=== PATIENT | female | born 1990 | race African-American/Black ===

== ENCOUNTER 2020-08-09 15:17 | Outpatient (CLI) | payer OTHER, SELFPAY ==
--- NOTE | ~2020-08-09 | US_ITS ---
EXAMINATION: US OB follow up DATE: 08/09/2020 15:55 INDICATION: Follow-up growth. TECHNIQUE: Real-time transabdominal obstetric ultrasound. FINDINGS: No prior studies for comparison. There is a single living fetus in vertex presentation. The placenta is fundal without placenta previ a. cardiac activity and movement is noted with a heart rate of 159 beats per minute. T he amniotic fluid volume is normal. The following biometric data were obtained: BPD: 41mm corresponds to gestational age 18 weeks 3 days. Head circumference: 149mm corresponds to gestational age 18 weeks 0 days. Abdominal circumference: 135mm corresponds to gestational age 19 weeks 0 days. Femur length: 20mm corresponds to gestational age 18 weeks 4 days. Estimated weight: 253grams +/- 38grams.] IMPRESSION: 1. Single living intrauterine presentation with an estimated gestational age of 18 weeks 4 days by current ultrasound. EDC by current ultrasound is 01/06/2021. 2. Normal placenta. Reviewed, dictated and finalized at location A. IMPRESSION: 1. Single living intrauterine presentation with an estimated gestati onal age of 18 weeks 4 days by current ultrasound. EDC by current ultrasound is 01/06/2021. 2. Normal placenta.
== END 2020-08-09 15:18 | disposition home or self-care (01) ==
PROVIDERS: Visit Provider Obstetrics & Gynecology
DX: Z34.92 Encounter for supervision of normal pregnancy, unspecified, second trimester (principal); Z3A.18 18 weeks gestation of pregnancy
CPT/HCPCS: 76816

== ENCOUNTER 2020-10-14 11:08 | Outpatient (CLI) | payer OTHER, SELFPAY ==
--- NOTE | ~2020-10-14 | US_ITS ---
EXAMINATION: US OB follow up DATE: 10/14/2020 11:53 INDICATION: Routine care TECHNIQUE: Real-time transabdominal obstetric ultrasound. FINDINGS: Ultrasound dated 08/09/2020 There is a single living fetus in vertex presentation. The placenta is anterior without placenta pre via. cardiac activity and movement is noted with a heart rate of 54 beats per minute. Th e amniotic fluid volume is normal. SERGIO measures 13.8 cm The following biometric data were obtained: BPD: 67mm corresponds to gestational age 26 weeks 6 days. Head circumference: 252mm corresponds to gestational age 27 weeks 2 days. Abdominal circumference: 223mm corresponds to gestational age 27 weeks 1 days. Femur length: 54mm corresponds to gestational age 28 weeks 5 days. Estimated weight: 1111grams +/- 167 grams.] IMPRESSION: 1. Single living fetus in presentation with an estimated gestational age of 28 weeks 0 days by init itial ultrasound. Appropriate interval growth. 2. Normal placenta. Reviewed, dictated and finalized at location A. IMPRESSION: 1. Single living fetus in presentation with an estimated gestational age of 2 8 weeks 0 days by inititial ultrasound. Appropriate interval growth. 2. Normal placenta.
== END 2020-10-14 11:09 | disposition home or self-care (01) ==
LOC: ANHIMG 11:12
PROVIDERS: Visit Provider Obstetrics & Gynecology
DX: Z34.82 Encounter for supervision of other normal pregnancy, second trimester (principal); Z3A.28 28 weeks gestation of pregnancy
CPT/HCPCS: 76816

== ENCOUNTER 2020-12-17 04:01 | Observation (INO) | payer OTHER, SELFPAY ==
[2020-12-17 07:48] VITALS: RESP 16; BMI 42.1
--- NOTE | 2020-12-17 07:50 | OBADM ---
Reported to RN that this patient, Leonor Oconnor, admitted to the OB room Labor/Delivery/Recovery 107 for observation to rule out labor. Patient/family oriented to hospital policies and general routines including ID bracelet, bed and alarms, visiting hours, pain management, procedures, bathroom and other care routines, personal items, smoking policy, room service/diet, call light and visiting hours. Patient/Family are encouraged to report perceived risks to care and to ask questions if they do not understand what they are told or what they should do.
--- NOTE | 2020-12-17 08:35 | PM.OBTRLD ---
OB - Triage/Final Diagnosis Visit Information Comments/Additional reasons for admission: I have assessed the risk for this patient, Leonor Oconnor, and determined that she would benefit from observation care. Evaluation Vital signs: Vital Signs - 24 hr 12/17/20 07:48 Respiratory Rate 16 Final Diagnosis (1) False labor: Code(s): O47.9 - False labor, unspecified Status: Acute (2) Term : Code(s): Z34.90 - Encounter for supervision of normal , unspecified, unspecified trimester Status: Acute
== END 2020-12-17 08:20 | disposition home or self-care (01) ==
PROVIDERS: Admitting Provider Obstetrics & Gynecology; Visit Provider Obstetrics & Gynecology
DX: O47.1 False labor at or after 37 completed weeks of gestation (principal); Z3A.37 37 weeks gestation of pregnancy
CPT/HCPCS: G0378; G0379

== ENCOUNTER 2020-12-28 08:30 | Outpatient (RCR) | payer OTHER, SELFPAY ==
--- NOTE | ~2020-12-28 | US_ITS ---
EXAMINATION: US OB follow up w BPP DATE: 12/28/2020 10:22 INDICATION: Estimated weight, amniotic fluid index assessment, -induced hypertension, third trimester TECHNIQUE: Real-time pelvic ultrasound was performed. The interpreting radiologist was not present fo r the study. COMPARISON: None. FINDINGS: There is a single living fetus in vertex presentation. The placenta is anterior. heart rate is 141 beats per minute (bpm). The amniotic fluid index is 13.0 cm which is normal. Biophysical profile performed by the technologist: breathing (30 sec sustained breathing in 30 minutes): 2 out of 2 movement (3 gross body movements in 30 minutes): 2 out of 2 tone (one episode of tctsdia-fwuhutyyq-grwsnak limb movement): 2 out of 2 Amniotic fluid pocket (2 cm): 2 out of 2 Total score: 8 out of 8 The following biometric data were obtained: Biparietal diameter (BPD): 8.4 cm; head circumference (HC): 32.5 cm; abdominal circumference (AC): 34 .5 cm; femur length (FL): 7.5 cm. The femoral length to biparietal diameter ratio is greater than two standard deviations above the mean. These measurements are otherwise concordant. Estimated weight is 3294 g +/- 494 g, which correlates with the 45th percentile when 01/07/2021 is used as estimated date of delivery. As single measurements, these parameters are each equal to the following estimated gestational ages w ith ranges of +/- 2 standard deviations: BPD: 33 weeks 6 days +/- 3 weeks 1 days. HC: 36 weeks 6 days +/- 2 weeks 5 days. AC: 38 weeks 3 days +/- 3 weeks 0 days. FL: 38 weeks 5 days +/- 3 weeks 1 days. estimated gestational age based solely on measurements from this exam is 37 weeks 0 days +/- 2 weeks 4 days. IMPRESSION: 1. Single living fetus in vertex presentation. 2. Biophysical profile 8 out of 8. 3. Normal amniotic fluid index. 4. Estimated weight is 3294 g +/- 494 g, which correlates with the 45th percentile when 01/08/20 21 is used as estimated date of delivery. 5. Femoral length to biparietal diameter ratio greater than two standard deviations above the mean. Reviewed, dictated and finalized at location B. IMPRESSION: 1. Single living fetus in vertex presentation. 2. Biophysical profile 8 out of 8. 3. Normal amniotic fluid index. 4. Estimated weight is 3294 g +/- 494 g, which correlates with the 45th p ercentile when 01/07/2021 is used as estimated date of delivery. 5. Femoral length to biparietal diameter ratio greater than two standard deviat ions above the mean.
[2020-12-28 11:20] VITALS: BP 124/84; PULSE 100
== END 2021-01-04 07:01 | disposition home or self-care (01) ==
LOC: ANHOBOP 08:30
PROVIDERS: Visit Provider Obstetrics & Gynecology
DX: O26.893 Other specified pregnancy related conditions, third trimester (principal); R03.0 Elevated blood-pressure reading, without diagnosis of hypertension; Z3A.38 38 weeks gestation of pregnancy
CPT/HCPCS: 59025; 76816; 76819

== ENCOUNTER 2020-12-31 10:20 | Inpatient (IN) | payer OTHER, SELFPAY ==
[2020-12-31] VITALS (15 sets, daily range): BP systolic 95–142; BP diastolic 44–95; PULSE 72–113; RESP 16; TEMP 36.7–36.8; O2SAT 100
--- OUTSIDE RECORDS SUMMARY | 2020-12-31 10:31 | XMS_ITS | Encounter Summary ---
:1990 Author Care Team Providers Name Role Phone Jack Jeronimo MD Centrifugal Casting Machine Operator [phone] Reason for Visit ob routine visit Assessment and Plan Assessment Note RUIZ JimenezS 1. Routine care ? urinalysis, dipstick 2. Heterozygous methylenetetrahy drofolate reductase mutation B12 given today ? cyanocobalamin (vit B-12) 1,000 mcg/mL injection solution ? folic acid 1 mg tablet 3. Family planning surveillance Pt wants for co ntraception 4. Group B Streptococcus carrier positive 10/26/20 5. Asthma off work ? controlling your asthma: c are instructions ? learning about asthma 6. -induced hypertensio n ? high blood pressure in pre gnancy: care instructions ? protein, total, 24-hour ur ine - IN ADDITION TO OUR OFFICE PLEASE FAX RESULTS TO [facility] AT ? CMP, serum or plasma - IN ADDITION TO OUR OFFICE PLEASE FAX RESULTS TO [facility] AT [phone] ? uric acid, serum or plasma - IN ADDITION TO OUR OFFICE PLEASE FAX RESULTS TO [facility] AT ? CBC - IN ADDITION TO OUR O FFICE PLEASE FAX RESULTS TO [facility] AT [phone] ? US, obstetric, biophysical profile + non-stress test ? US, obstetric, 3rd trimest er Discussion Note: None recorded. Plan of C
--- OUTSIDE RECORDS SUMMARY | 2020-12-31 10:31 | XMS_ITS | Encounter Summary ---
:1990 Author Care Team Providers Name Role Phone Jack Jeronimo MD Director Clinical Operations [phone] Reason for Visit ob routine visit Assessment and Plan Assessment Note RUIZ JimenezS 1. Routine care ? urinalysis, dipstick 2. Heterozygous methylenetetrahy drofolate reductase mutation Given 11/27/2020 3. Group B Streptococcus carrier positive 10/26/20 4. Asthma off work ? controlling your asthma: c are instructions ? learning about asthma Discussion Note: None recorded. Plan of Care Reminders Provider Appointments Ob 15 01/03/2021 Lisa Coughlin 9:30AM ALANNAH Escobar ? Return to on or around Chanel Coughlin Office 02/06/2021 ALANNAH Escobar Lab Urinalysis, 12/20/2020 In-Of fice Order Dipstick Referral None ? ? recorded. Procedures None ? ? recorded. Surgeries None ? ? recorded. Imaging None ? ? recorded. Medications Name Start Date ? ? albuterol sulfate HFA 90 mcg/actuation aerosol
--- OUTSIDE RECORDS SUMMARY | 2020-12-31 10:31 | XMS_ITS | Encounter Summary ---
:1990 Author Care Team Providers Name Role Phone Jack Jeronimo MD Parimutuel Ticket Cashier [phone] Reason for Visit ob routine visit Pt sates she have a yellowish-green disc harge no odor, itching nor irritation. She believe it was from using araujo shaving cream. Assessment and Plan Assessment Note Fani BRAND 1. Routine care ? urinalysis, dipstick 2. Abnormal glucose tolerance te st 1H-162 normal gtt 3hr 3. Group B Streptococcus carrier 4. Heterozygous methylenetetrahy drofolate reductase mutation ? cyanocobalamin (vit B-12) 1,000 mcg/mL injection solution 5. Obesity ? when you are overweight: c are instructions 6. Bacterial vaginosis ? bacterial vaginosis: care instructions ? metronidazole 0.75 % vagin al gel 7. Candidiasis of vagina ? fluconazole 150 mg tablet ? vaginal yeast infection: c are instructions 8. Venereal disease screening ? bacterial vaginosis + vagi nitis panel, vaginal ? HSV (1+2) DNA, qual, PCR, unspecified specimen 9. screening ? culture, vaginal/rectal, s treptococcus group B Discussion Note Discussed control options, wo uld like more information on IUD vs Nexplanon. Did not like being on depo du e to weight gain, but did help bleeding. Concern for yellow/green discharge witho ut odor, took swabs for culture. Minor back pain.
--- OUTSIDE RECORDS SUMMARY | 2020-12-31 10:31 | XMS_ITS | Encounter Summary ---
:1990 Author Care Team Providers Name Role Phone Jack Jeronimo MD Learning Support Services Director [phone] Reason for Visit ob routine visit Assessment and Plan 1. Routine care ? urinalysis, dipstick ? US, obstetric, [address] [place] [address] er 2. Heterozygous methylenetetrahy drofolate reductase mutation 3. Group B Streptococcus carrier positive 10/26/20 4. Asthma off work ? controlling your asthma: c are instructions ? learning about asthma 5. Abnormal glucose tolerance te st 1H-162 normal gtt 3hr Discussion Note: None recorded. Plan of Care Reminders Provider Appointments Ob 15 01/03/2021 Lisa Coughlin 9:30AM ALANNAH Escobar ? Return to on or around [facility]ough[facility] Office 02/06/2021 ALANNAH Escobar Lab Urinalysis, 12/13/2020 In-Of fice Order Dipstick Referral None ? ? recorded. Procedures None ? ? recorded. Surgeries None ? ? recorded. Imaging US, 12/13/[address] [facility] Trimester Medications Name Start Date ? ?
--- OUTSIDE RECORDS SUMMARY | 2020-12-31 10:31 | XMS_ITS ---
:1990 Author Care Team Providers Name Role Phone CAREY HANKS MD Inspector Health Care Facilities [phone] Allergies Code Code System Name Reaction Severity Status Onset NKDA ? Notes: Some allergies listed in Document: #[id number] could not be added to this patient's chart. Please review this document and add these allergies to the patient's chart manually as needed. Medications Name Status Start Date Stop Date ? ? albuterol sulfate HFA 90 mcg/actuation aerosol inhaler Active ? Not available INHALE 2 PUFFS BY MOUTH TWICE A DAY aspirin 81 mg tablet,delayed release Active ? Not available TAKE 2 TABLETS BY MOUTH EVERY DAY azithromycin 250 mg tablet Completed ? 10/05 TAKE 2 TABLETS BY MOUTH TODAY, THEN TAKE 1 TABLET DAILY FOR 4 D AYS Calcium 600 with Vitamin D3 600 mg (1,500 mg)-400 unit capsule A ctive ? Not available Take 1 capsule twice a day by oral route. calcium carbonate-vitamin D3 600 mg (1,500 mg)-800 unit tablet C ompleted ? 08/02/2020 Take 1 tablet twice a day by oral route for 30 days. ceftriaxone 1 gram solution for injection Completed ? 10/09/2017 Take 500 mg by injection route. cetirizine 10 mg tablet Active ? Not avai lable cyanocobalamin (vit B-12) 1,000 mcg/mL injection solution Active ? Not available Inject 1 mL every month by subcutaneous route. Depo-Provera 150 mg/mL intramuscular suspension Completed ? 12/01/2017 Inject 150 mL every 3 months by intramuscular route. ferrous sulfate 325 mg (65 mg iron) tablet Completed ? 12/01/2017 Take 1 tab
--- OUTSIDE RECORDS SUMMARY | 2020-12-31 10:31 | XMS_ITS | Encounter Summary ---
:1990 Author Care Team Providers Name Role Phone Jack Jeronimo MD Project Management Advisor [phone] Reason for Visit ob routine visit Assessment and Plan Assessment Note SAGAR MatiasS 1. Routine care ? urinalysis, dipstick ? US, obstetric, 3rd trimest er ? counting your baby's kicks : care instructions ? kick counts ? CBC - In addition to our o ffice, please fax results to [facility] [phone] ? Boostrix Tdap 2.5 Lf unit- 8 mcg-5 Lf/0.5 mL intramuscular suspension 2. Group B Streptococcus carrier 3. Heterozygous methylenetetrahy drofolate reductase mutation ? cyanocobalamin (vit B-12) 1,000 mcg/mL injection solution 4. Obesity ? when you are overweight: c are instructions 5. Anemia ? anemia: care instructions 6. Gonorrhea ? gonorrhea: care instructio ns 7. screening ? glucose tolerance test, po st-50G, 1-hour - In addition to our office, please fax results to [facility] [phone] Discussion Note: None recorded. Plan of Care Reminders Provider Appointments Ob 15 01/03/2021 Lisa Coughlin 9:30AM ALANNAH Escobar ? Return to on or around [facility]ough[facility] Office 02/06/
--- OUTSIDE RECORDS SUMMARY | 2020-12-31 10:31 | XMS_ITS | Encounter Summary ---
:1990 Author Care Team Providers Name Role Phone Jack Jeronimo MD Wheel Braider [phone] Reason for Visit ob routine visit Assessment and Plan Assessment Note Nubia BRAND 1. Routine care ? weeks 32 to 34 of your pre gnancy: care instructions ? HIV 1+2 AB + HIV 1 p24 Ag, qualitative immunoassay, serum ? RPR (rapid plasma reagin), serum ? CBC ? urinalysis, dipstick 2. Heterozygous methylenetetrahy drofolate reductase mutation 3. Group B Streptococcus carrier 4. Bacterial vaginosis ? bacterial vaginosis: care instructions 5. Hemorrhoids ? hemorrhoids: care instruct ions ? Anusol-HC 2.5 % topical cr eam with perineal applicator ? Linzess 145 mcg capsule Discussion Note: None recorded. Plan of Care Reminders Provider Appointments Ob 15 01/03/2021 Lisa Coughlin 9:30AM ALANNAH Escobar ? Return to on or around [facility]ough[facility] Office 02/06/2021 ALANNAH Escobar Lab HIV 1+2 AB + 11/13/2020 [facility]p HIV 1 P24 Ag, Qualitative Immunoassay, Serum ? RPR (Rapid 11/13/2020 [facility] p Plasma Reagin), Serum
--- OUTSIDE RECORDS SUMMARY | 2020-12-31 10:31 | XMS_ITS | Encounter Summary ---
:1990 Author Care Team Providers Name Role Phone Jack Jeronimo MD Senior Telecommunications Engineer [phone] Reason for Visit ob routine visit Assessment and Plan Assessment Note Dwayne MELCHORS 1. Routine care ? urinalysis, dipstick 2. Heterozygous methylenetetrahy drofolate reductase mutation ? cyanocobalamin (vit B-12) 1,000 mcg/mL injection solution ? folic acid 1 mg tablet 3. Group B Streptococcus carrier 4. Asthma off work ? controlling your asthma: c are instructions ? learning about asthma 5. Obesity ? when you are overweight: c are instructions Discussion Note: None recorded. Plan of Care Reminders Provider Appointments Ob 15 01/03/2021 Lisa Coughlin 9:30AM ALANNAH Escobar ? Return to on or around [facility]ough[facility] Office 02/06/2021 ALANNAH Escobar Lab Urinalysis, 11/27/2020 In-Of fice Order Dipstick Referral None ? ? recorded. Procedures None ? ? recorded. Surgeries None ? ? recorded. Imaging None ? ? recorded. Medications
[2020-12-31] MEDS: AMPICILLIN 2 GM/NS 100 ML 2 GM/100 ML BAG IVPB (10:38)
[2020-12-31] MEDS: LACTATED RINGERS 1,000 ML 125 ML IV CONT (10:38)
[2020-12-31 10:44] LABS: Basophils Percent Auto 0.2 % (0.2-1.2); Eosinophils Absolute Auto 0.1 K/mm3 (0-0.3); Eosinophils Percent Auto 0.5 % (0-4.4); Hematocrit 34.8 % (37.0-47.0); Hemoglobin 10.2 g/dL (12.0-15.0); Immature Granulocyte Absolute 0.05 K/mm3 (0.00-0.031); Immature Granulocyte Percent A 0.5 % (0-0.5); Immature Platelet Fraction Pct 9.9 % (0.9-11.2); Lymphocytes Absolute Auto 1.99 K/mm3 (0.9-3.2); Lymphocytes Percent Auto 19.8 % (18.3-44.2); Mean Corpuscular HGB Conc 29.3 g/dl (32-36); Mean Corpuscular Volume 78.4 fl (80-100); Mean Platelet Volume 11.8 fl (7.4-10.4); Monocytes Absolute Auto 0.8 K/mm3 (0.1-0.6); Monocytes Percent Auto 8.3 % (2.6-8.5); Neutrophils Absolute Auto 7.1 K/mm3 (1.3-6.7); Neutrophils Percent Auto 70.7 % (45.5-73.1); Platelet Count Result 200 k/mm3 (150-375); Red Blood Count 4.44 M/mm3 (4.2-5.4); Red Cell Distribution Width 16.6 % (11.5-14.5); White Blood Count 10.1 K/mm3 (4.5-10.0)
[2020-12-31] MEDS: OXYTOCIN 30 UNITS/NS 500 ML 30 UNITS/500 ML BAG 999 UNITS IV CONT (10:51)
--- NOTE | 2020-12-31 11:10 | PM.IMHP ---
H&P: HPI History of Present Illness Date/Time: 12/31/20 11:05 Leonor is a 30yo @ 39.0wks (MIRNA 01/07/21) who presented as a stat OB in labor; found to be ruptured (clear) on the drive here and 8cm on initial exam. She has had regular care with Dr. Jeronimo. Her is complicated by: - GBS unknown - Asthma on steroid and rescue inhaler - Migraines; sumatriptan PRN - Varicella non-immune - Elevated 1hr GTT; normal 3hr OGTT - Mild anemia - Obesity Chief Complaint: labor Review of Systems Review of Systems: All systems reviewed & are unremarkable except as noted in HPI and below (HPI) Meds Home Medications and Allergies Home Medications Medication Instructions Recorded Confirmed Type PNV cmb#95-ferrous fumarate-FA 1 tablet PO DAILY 12/28/20 12/28/20 History [] aspirin [Baby Aspirin] 81 mg PO DAILY 12/28/20 12/28/20 History Allergies Allergy/AdvReac Type Severity Reaction Status Date / Time No Known Allergies Allergy Verified 12/17/20 07:38 Vital Signs Vital Signs - 24 hr 12/31/20 10:45 12/31/20 10:47 12/31/20 11:01 Pulse Rate 113 H 89 Blood Pressure 138/85 126/95 H 133/73 Exam Const: General: cooperative and in distress (with contractions) Nutritional Appearance: obese Resp: Effort & Inspection: normal respiratory effort Cardio: Rate: regular rate : Other: Cervix: 8cm FHT's; category 2 but reassuring presentation: cephalic Skin: General skin exam: normal color Neuro: General: patient oriented x3 Extrem: General: normal to inspection Psych: Appearance: grossly normal Affect: normal affect H&P: Results Labs Labs: Short CBC 12/31/20 Range/Units 10:35 WBC 10.1 H (4.5-10.0) K/mm3 Hgb 10.2 L (12.0-15.0) g/dL Hct 34.8 L (37.0-47.0) % Plt Count 200 (150-375) k/mm3 Assessment and Plan Assessment and plan (1) Active labor at term: Status: Acute Additional Plan - Admitted to L&D for precipitous delivery
--- NOTE | 2020-12-31 11:10 | WPDHPUPDATE1 ---
History and Physical Update Update Date/Time: 12/31/20 11:10 History and Physical has been reviewed, including an updated exam of the patient. There are NO changes in the patient's condition. Risks, benefits, and alternatives have been discussed and questions answered. Patient agrees to proceed with procedure.
--- NOTE | 2020-12-31 11:16 | PM.OBPRVD ---
OB - Delivery Note Procedure Delivery date: 12/31/20 Intrapartal events: Precipitous Labor < 3 hours Induction method: none Delivery monitor: external FHT and external uterine Route of delivery: Laceration Description: Vaginal - 1st Degree Delivery repair: vicryl Specimen: Yes Quantitative Blood Loss (ml): 200 Anesthesia type: None Disposition: floor Baby Date of : 12/31/20 Time of : 10:47 Weeks of gestation at delivery: 39 Infant gender: Male Weight (pounds): 7 Weight (ounces): 1 presentation: vertex position: Right Occiput Anterior Placenta delivery description: Expressed cord vessel description: 3 Vessels and Delayed Cord Clamping score one minute: 9 score five minutes: 9 Narrative: Leonor presented to Labor and delivery in active labor, found to be 8 cm with ruptured membranes. heart tones were reassuring and within 10 minutes was found to be completely dilated with strong desire to push. She pushed twice and delivered the head over intact perineum. No nuchal cord was palpated. She easily delivered the infant's shoulders and body without complications. The had spontaneous cry and was immediately placed skin to skin. Delayed cord clamping was performed. The umbilical cord was then clamped and cut. A segment of the cord was collected for cord gases. The remaining cord blood was collected for typing. With Pitocin running and gentle downward traction on the umbilical cord, the placenta delivered without complications, verified intact. Fundal massage was performed and minimal bleeding was noted. The patient was examined and was found to have a small vaginal laceration. Pressure was applied but the laceration continued bleeding. The patient was anesthetized using local anesthesia. A figure of 8 using 2-0 Vicryl was placed and the laceration was found to be hemostatic. Fundal massage was once again noted to be firm with minimal bleeding. Sponge, lap, instrument, and needle counts were correct at the end of the procedure. Mom and baby were left bonding in the birthing suite in a stable condition.
[2020-12-31] MEDS: OXYTOCIN 30 UNITS/NS 500 ML 30 UNITS/500 ML BAG 125 UNITS IV CONT (11:29)
[2020-12-31 12:07] LABS: HIV 1/2 Ab P24 Ag Result Negative (Negative)
--- NOTE | 2020-12-31 13:03 | LDADM ---
This patient, Leonor Oconnor, was admitted to Labor/Delivery/Recovery 107 on 12/31/20 at 10:20. Plans for labor, pain management and were discussed with patient. Patient/family oriented to hospital policies and general routines including ID bracelet, bed and alarms, visiting hours, pain management, procedures, bathroom and other care routines, personal items, smoking policy, room service/diet and guest tray routines, security routines, and visiting hours. Patient/Family are encouraged to report perceived risks to care and to ask questions if they do not understand what they are told or what they should do. See OBIX for further documentation.
--- NOTE | 2020-12-31 19:37 | OBPPTRN ---
[id number] Patient transferred to post room #290 via W/C. Support person present. Oriented to unit, room, information board, rooming in, admission packet and security measures. Patient verbalizes understanding.
[2020-12-31] MEDS: ACETAMINOPHEN 325 MG TABLET 650 MG PO (23:32)
[2020-12-31] MEDS: IBUPROFEN 600 MG TABLET PO (23:33)
[2021-01-01 04:30] VITALS: BP 133/90; PULSE 74; RESP 16; TEMP 36.4; O2SAT 100
[2021-01-01 04:54] LABS: Hematocrit 32.9 % (37.0-47.0); Hemoglobin 9.4 g/dL (12.0-15.0)
[2021-01-01] MEDS: ACETAMINOPHEN 325 MG TABLET 650 MG PO (05:03)
[2021-01-01] MEDS: IBUPROFEN 600 MG TABLET PO (05:03)
[2021-01-01 07:30] VITALS: BP 135/87; PULSE 82; RESP 16; TEMP 36.4; O2SAT 100
--- NOTE | 2021-01-01 07:41 | PM.OBDSVD ---
DS: Admitting Diagnosis Discharge Date 01/01/2021 Admitting Diagnosis OB - DS: Summary OB Procedures : None OB Procedures Intrapartum: Spontaneous Vag Delivery OB Procedures: : None Time Spent with Patient Time attestation: Total time spent providing and/or coordinating discharge services: DS: Data Data Completed and Pending Labs on day of discharge: Labs from last 24 hours 01/01/21 12/31/20 12/31/20 04:23 10:35 10:35 WBC RBC Hgb 9.4 L Hct 32.9 L MCV MCH MCHC RDW Plt Count MPV Immature Gran % (Auto) Neut % (Auto) Lymph % (Auto) [place] % (Auto) Eos % (Auto) Baso % (Auto) Lymph # (Auto) [place] # (Auto) Eos # (Auto) Baso # (Auto) Abs Immat Gran (auto) Absolute Neuts (auto) Absolute Nucleated RBC Nucleated RBC % % Immature Plt Fraction RPR HIV 1&2 Ab/P24 Ag 4thGn Negative Blood Type A Positive Antibody Screen Negative 12/31/20 12/31/20 10:35 10:35 WBC 10.1 H RBC 4.44 Hgb 10.2 L Hct 34.8 L MCV 78.4 L MCH 23.0 L MCHC 29.3 L RDW 16.6 H Plt Count 200 MPV 11.8 H Immature Gran % (Auto) 0.5 Neut % (Auto) 70.7 Lymph % (Auto) 19.8 Tal[place]ferro % (Auto) 8.3 Eos % (Auto) 0.5 Baso % (Auto) 0.2 Lymph # (Auto) 1.99 [place]ferro # (Auto) 0.8 H Eos # (Auto) 0.1 Baso # (Auto) 0.0 Abs Immat Gran (auto) 0.05 H Absolute Neuts (auto) 7.1 H Absolute Nucleated RBC 0.0 Nucleated RBC % 0.0 % Immature Plt Fraction 9.9 RPR Pending HIV 1&2 Ab/P24 Ag 4thGn Blood Type Antibody Screen Discharge Plan Discharge Consulting providers: María Antunez Discharging Clinician: Rudy Herrera Patient Disposition: Home, Self-Care Activity: as tolerated Diet: as tolerated Discharge Instructions: Education: Mom and Baby Guide Given to: Mother Follow-Up: Call your delivering provider's office for an appointment to be seen in: 3 weeks Mom and baby should come to the [facility] for the follow-up appointment. Appointment Date/Time: January 05, 2021 at 10:00 am What to expect at your follow-up visit: Physical Assessment Call [phone] if you are unable to keep your appointment time. BREAST CARE: * Wear a snug supportive bra. * For engorgement discomfort: Bottle Feeding: * May apply ice packs EPISIOTOMY/PERINEAL CARE: * Until bleeding stops, use your nikolas bottle after urinating * Change your pad frequently throughout the day * You may take sitz baths several times a day (fill your bathtub with warm water and soak for 20 minutes.) Do NOT bathe in the water * No tub baths until seen by your physician - You may shower ACTIVITY: * Rest as much as possible. * Do not exercise or lift anything heavier than your baby (such as laundry or other children.) * Avoid stairs or driving as much as possible. * Do not put anything into the vagina. No douching, tampons, or sexual activity until seen by physician. NOTIFY PHYSICIAN IF YOU HAVE ANY QUESTIONS OR IF ANY OF THE FOLLOWING SYMPTOMS OCCUR: * If your episiotomy or incision becomes red, swollen, or more painful than what you have experienced in the hospital. * If your vaginal bleeding becomes foul smelling. * If your vaginal bleeding becomes more heavy than a period or if your bleeding changes from pink to bright red. However, you may pass an occasional walnut-sized clot once or twice for the first week . * If you experience a sharp, shooting pain in you calves. * If you discover a hard, reddened area on your breast or if you experience flu-like symptoms. DIET: * Eat regular, well-balanced meals. * Drink plenty of fluids daily. If , drink to thirst. Stand Alone Forms: General Discharge Information Follow-up/Referrals: Jack Jeronimo MD [Physician] - 3 Weeks Discharge Medications: New ibuprofen 600 m
[2021-01-01] MEDS: DOCUSATE SODIUM 100 MG CAPSULE PO ×2 (08:22→17:58)
[2021-01-01] MEDS: POLYSACCHARIDE IRON COMPLEX 150 MG CAPSULE PO ×2 (08:22→17:58)
[2021-01-01 09:29] LABS: Rapid Plasma Reagin Non-Reactive (NonReactive)
[2021-01-01 19:20] VITALS: BP 111/90; PULSE 100; RESP 16; TEMP 36.7
[2021-01-02 08:10] VITALS: BP 138/94; PULSE 80; RESP 16; TEMP 37.4; O2SAT 100
[2021-01-02] MEDS: POLYSACCHARIDE IRON COMPLEX 150 MG CAPSULE PO (08:46)
[2021-01-02] MEDS: DOCUSATE SODIUM 100 MG CAPSULE PO (08:46)
--- NOTE | 2021-01-02 10:39 | PC.NURSE ---
Patient instructed on viewing the discharge video Mother & Baby Care, The First Two Weeks . Patient was given the opportunity and encouraged to ask questions. Patient verbalized understanding of information shared and has been given the mother/baby guide for home reference.
[2021-01-05 10:08] VITALS: BP 124/88; PULSE 78; RESP 20; TEMP 36.9; O2SAT 100
== END 2021-01-02 11:35 | disposition home or self-care (01) | DRG 560 ==
LOC: ANHLDR 10:28 → ANHOB2 14:21
PROVIDERS: Obstetrics & Gynecology; Admitting Provider Obstetrics & Gynecology; Visit Provider Obstetrics & Gynecology
DX: O62.3 Precipitate labor (principal); Z37.0 Single live birth; Z3A.39 39 weeks gestation of pregnancy; O99.02 Anemia complicating childbirth; D64.9 Anemia, unspecified; O99.214 Obesity complicating childbirth; E66.9 Obesity, unspecified; O70.0 First degree perineal laceration during delivery; O99.52 Diseases of the respiratory system complicating childbirth; J45.909 Unspecified asthma, uncomplicated; G43.909 Migraine, unspecified, not intractable, without status migrainosus; O99.354 Diseases of the nervous system complicating childbirth
CPT/HCPCS: 36415; 85014; 85018; 85025; 85055; 86592; 86703; 86850; 86900; 86901; 88307; A9270; G0432; J0290; J2590; J7120

== ENCOUNTER 2022-04-04 07:14 | Emergency (ER) | payer OTHER, SELFPAY ==
--- NOTE | ~2022-04-04 | XR_ITS ---
EXAMINATION: XR chest 1V portable DATE: 04/04/2022 08:11 INDICATION: Cough. Chest congestion. Shortness of breath. TECHNIQUE: A single frontal view of the chest was obtained. COMPARISON: None. FINDINGS: There is no pneumonia, pleural effusion, or pneumothorax. The heart size is normal. IMPRESSION: 1. No acute cardiopulmonary disease. Reviewed, dictated and finalized at location A. ING MAN
[2022-04-04 07:17] VITALS: BP 130/74; PULSE 101; RESP 14; TEMP 36.6; O2SAT 97
--- NOTE | 2022-04-04 07:36 | ED.GENADULT ---
HPI - General Adult General Chief complaint: Upper Respiratory Infection Stated complaint: Cough, L shoulder pain Time Seen by Provider: 04/04/22 07:16 History of Present Illness HPI narrative: 31-year-old healthy, well-appearing female with a history of asthma and tobacco use when anxious presents to our department for evaluation of a cough x3 days which is dry. Patient may have had a fever yesterday. No sick contacts. Patient does have a history of asthma but only uses her inhalers when she is . She has not used an inhaler recently. Related Data Home Medications Medication Instructions Recorded Confirmed vit no.95-ferrous 1 tablet PO DAILY 12/28/20 12/28/20 fumarate 28 mg-folic acid 800 mcg tablet () Allergies Allergy/AdvReac Type Severity Reaction Status Date / Time No Known Allergies Allergy Verified 12/17/20 07:38 Review of Systems Review of Systems: CONSTITUTIONAL: Denies fever, chills, or sweats. EYES: Denies visual changes, redness, or discharge. ENT: Denies rhinorrhea, congestion, sore throat, or otalgia. CARDIOVASCULAR: Denies chest pain, palpitations, or edema. RESPIRATORY: Denies cough or dyspnea. GASTROINTESTINAL: Denies abdominal pain, nausea, vomiting, or diarrhea. GENITOURINARY: Denies dysuria or hematuria. SKIN: Denies rash or itching. MUSCULOSKELETAL: Denies back pain, joint pain, or myalgia. NEUROLOGIC: Denies headache, numbness, or weakness. PSYCHIATRIC: Denies anxiety or depression. [facility] Social History Social History Smoking status: Never smoker Second hand tobacco smoke exposure: No Substance use: never Spiritual care concerns: No Exam Narrative: GENERAL: Well-appearing, well-nourished, and in no acute distress. HEAD: Normocephalic, atraumatic. EYES: PERRLA and EOMI. ENT: Nares clear, no rhinorrhea or epistaxis. Mucous membranes moist. NECK: Supple. CHEST: Clear to auscultation. No respiratory distress. HEART: Regular rate and rhythm. No murmur heard. Normal peripheral pulses. ABDOMEN: Soft, nontender, nondistended, normal active bowel sounds. EXTREMITIES: Normal range of motion. No edema. SKIN: Warm, dry, no rash. NEURO: No focal deficits. Alert and oriented x3. PSYCH: Normal mood and affect. Course Vital Signs Vital signs: Vital Signs Temperature 97.9 F 04/04/22 07:17 Pulse Rate 101 H 04/04/22 07:17 Respiratory Rate 14 04/04/22 07:17 Blood Pressure 130/74 04/04/22 07:17 Pulse Oximetry 97 04/04/22 07:17 Oxygen Delivery Room Air 04/04/22 07:17 Temperature 97.9 F 04/04/22 07:17 Pulse Rate 100 04/04/22 08:54 Respiratory Rate 12 04/04/22 08:54 Blood Pressure 156/96 H 04/04/22 08:54 Pulse Oximetry 98 04/04/22 08:54 Oxygen Delivery Room Air 04/04/22 08:00 Medical Decision Making MDM Narrative Medical decision making narrative: Well-appearing 31-year-old female presents for evaluation of a cough x3 days. DYSPNEA DDx for this patient includes AMI, pericardial effusion, PE, aortic dissection, PTX, PNA, anemia, CXR did not reveal any PNA, PTX, widened mediastinum. Patient's PE risk is low as they have no recent travel, recent surgeries or signs of DVT.? Chest x-ray viewed by myself and the radiologist and no acute cardiopulmonary abnormality. Patient's symptoms are improved and she is stable for DC home. Viral swabs are negative. Vital Signs Vital Signs: Vital Signs Temperature 97.9 F 04/04/22 07:17 Pulse Rate 101 H 04/04/22 07:17 Respiratory Rate 14 04/04/22 07:17 Blood Pressure 130/74 04/04/22 07:17 Pulse Oximetry 97 04/04/22 07:17 Oxygen Delivery Room Air 04/04/22 07:17 Temperature 97.9 F 04/04/22 07:17 Pulse Rate 100 04/04/22 08:54 Respiratory Rate 12 04/04/22 08:54 Blood Pressure 156/96 H 04/04/22 08:54 Pulse Oximetry 98 04/04/22 08:54 Oxygen Delivery Room Air 04/04/22 08:00
[2022-04-04 07:48] VITALS: PULSE 98; RESP 20
[2022-04-04] MEDS: ALBUTEROL SULFATE NEB 2.5 MG/3 ML INH 5 MG INHALATION (07:51)
[2022-04-04 08:00] VITALS: O2SAT 98
[2022-04-04 08:01] VITALS: PULSE 96; RESP 20
[2022-04-04 08:27] LABS: Influenza A QL RT-PCR Negative (Negative); Influenza B QL RT-PCR Negative (Negative); SARS-CoV-2 RNA PCR Negative
[2022-04-04 08:54] VITALS: BP 156/96; PULSE 100; RESP 12; O2SAT 98
== END 2022-04-04 08:56 | disposition home or self-care (01) ==
PROVIDERS: Emergency Provider Emergency Medicine
DX: B34.9 Viral infection, unspecified (principal); J45.909 Unspecified asthma, uncomplicated; Z20.822 Contact with and (suspected) exposure to COVID-19; F17.200 Nicotine dependence, unspecified, uncomplicated
CPT/HCPCS: 71045; 87636; 94640; 99283

== ENCOUNTER 2022-05-30 10:48 | Emergency (ER) | payer OTHER, SELFPAY ==
--- NOTE | ~2022-05-30 | US_ITS ---
EXAMINATION: US OB <= 14 weeks fetus DATE: 05/30/2022 14:07 INDICATION: Bleeding during first trimester TECHNIQUE: Real-time pelvic transabdominal and transvaginal ultrasound was performed. COMPARISON: 12/28/2020 FINDINGS: The uterus measures 10.4 x 5.4 x 5.5 cm. The endometrial thickness measures 2.1 cm. No int rauterine gestational sac is identified. The right ovary measures 1.6 x 3.2 x 1.9 cm. The left ovary measures 3.9 x 2.7 x 2.4 cm and contains a 1.7 cm cyst. There is normal vascular flow in the ovaries. There is no free fluid in the pelvis. IMPRESSION: 1. of unknown location. Although no intrauterine gestational sac is seen, this may be due t o early gestation. If the patient is clinically stable, recommend followup with serial beta-hCG and u ltrasound. Reviewed, dictated and finalized at location L. LEMAN IMPRESSION: 1. of unknown location. Although no intrauterine gestational sac is s een, this may be due to early gestation. If the patient is clinically stable, r ecommend followup with serial beta-hCG and ultrasound.
[2022-05-30 10:51] VITALS: BP 148/101; PULSE 103; RESP 18; TEMP 36.5; O2SAT 100
--- NOTE | 2022-05-30 10:57 | PC.NURSE ---
Skin signs wnl, normal gait and posture.
--- NOTE | 2022-05-30 12:39 | ED.GENADULT ---
HPI - General Adult General Chief complaint: Vaginal Bleeding Stated complaint: bleeding, approximately 8 weeks Time Seen by Provider: 05/30/22 12:13 Source: RN notes reviewed History of Present Illness HPI narrative: Patient presents emergency department from home for vaginal bleeding. Patient states she is approximately 8 weeks with last menstrual cycle April 07, 2022 patient is G5, P4 states that she has been followed with Dr. Jeronimo in the past was not seen on for the past 2 years. States she started with mild spotting 2 days ago that is progressed to heavier bleeding last night and throughout the day she states is associated with lower abdominal cramping she denies any fevers or chills chest pain or shortness of breath Related Data Home Medications Medication Instructions Recorded Confirmed vit no.95-ferrous 1 tablet PO DAILY 12/28/20 12/28/20 fumarate 28 mg-folic acid 800 mcg tablet () Allergies Allergy/AdvReac Type Severity Reaction Status Date / Time No Known Allergies Allergy Verified 12/17/20 07:38 Review of Systems Review of Systems: Gen.: Denies fevers or chills ENT: Denies congestion Respiratory: Denies shortness of breath or cough CV: Denies chest pain GI: Reports lower abdominal pain denies nausea, emesis or diarrhea see HPI Musculoskeletal: Denies back pain or muscle pain Neuro: Denies numbness, tingling, weakness or focal weakness Skin: Denies rash Except as documented, all other systems reviewed and negative [facility] Past Medical History Medical History (Updated 05/30/22 @ 15:07 by Davi Hunt DO) Patient denies significant medical history Social History Social History Smoking status: Never smoker Second hand tobacco smoke exposure: No Substance use: never Spiritual care concerns: No Exam Narrative: APPEARANCE: No acute distress, nontoxic, resting in bed HEENT: Normocephalic, atraumatic, RESPIRATORY: No respiratory distress, clear to auscultation bilaterally with no rhonchi wheezing or rales CARDIOVASCULAR: RRR s murmur ABDOMINAL: Soft nondistended tender to palpation in the right lower quadrant left lower quadrant no tenderness in the right upper quadrant left upper quadrant no rebound or guarding : Normal external exam, moderate amount of dark maroon blood with clots in vaginal canal, cervix is closed with small amount of bleeding through the cervix MUSCULOSKELETAl: Moves all extremities. NEURO: Awake and alert. Following commands, speech normal, no focal deficits SKIN:: Warm, dry. Normal Color PSYCHIATRIC: Normal affect/mood Course Course Emergency Course: Reviewed old records patient with a positive blood type from 12/31/2020 : Discussed with Dr. Landry Jim for MEL[employer]ERK on-call presentation work-up he recommends the patient have a repeat beta-hCG on Friday and follow-up in the office this coming Friday Discussed with patient results of workup and diagnosis. Discussed need for follow-up with primary care, proper use of medication, and reasons to return to the emergency department. Patient understands and agrees to current treatment plan discussed with patient need for repeat beta-hCG discussed risk of threatened miscarriage and strict return precautions Vital Signs Vital signs: Vital Signs Temperature 97.7 F 05/30/22 10:51 Pulse Rate 103 H 05/30/22 10:51 Respiratory Rate 18 05/30/22 10:51 Blood Pressure 148/101 H 05/30/22 10:51 Pulse Oximetry 100 05/30/22 10:51 Oxygen Delivery Room Air 05/30/22 10:51 Temperature 97.7 F 05/30/22 10:51 Pulse Rate 103 H 05/30/22 10:51 Respiratory Rate 18 05/30/22 10:51 Blood Pressure 148/101 H 05/30/22 10:51 Pulse Oximetry 100 05/30/22 10:51 Oxygen Delivery Room Air 05/30/22 10:51 Medical Decision Making MDM Narrative Medical decision making narrative: Patient presents for vaginal
[2022-05-30] MEDS: SODIUM CHLORIDE 0.9% IV 1,000 ML 999 ML IV CONT (13:08)
[2022-05-30 13:11] LABS: Basophils Percent Auto 0.3 % (0.2-1.2); Eosinophils Absolute Auto 0.3 K/mm3 (0-0.3); Eosinophils Percent Auto 2.6 % (0-4.4); Hematocrit 39.4 % (37.0-47.0); Hemoglobin 12.2 g/dL (12.0-15.0); Immature Granulocyte Absolute 0.04 K/mm3 (0.00-0.031); Immature Granulocyte Percent A 0.4 % (0-0.5); Lymphocytes Absolute Auto 2.12 K/mm3 (0.9-3.2); Lymphocytes Percent Auto 20.1 % (18.3-44.2); Mean Corpuscular Hemoglobin 25.3 pg (26-34); Mean Corpuscular Volume 81.7 fl (80-100); Monocytes Absolute Auto 0.7 K/mm3 (0.1-0.6); Monocytes Percent Auto 6.6 % (2.6-8.5); Neutrophils Absolute Auto 7.4 K/mm3 (1.3-6.7); Platelet Count Result 214 k/mm3 (150-375); Red Blood Count 4.82 M/mm3 (4.2-5.4); Red Cell Distribution Width 16.1 % (11.5-14.5); White Blood Count 10.6 K/mm3 (4.5-10.0)
[2022-05-30 15:24] VITALS: BP 119/85; PULSE 64; RESP 12; O2SAT 98
== END 2022-05-30 15:26 | disposition home or self-care (01) ==
PROVIDERS: Emergency Provider Emergency Medicine; PCP Obstetrics & Gynecology
DX: O20.0 Threatened abortion (principal); Z3A.01 Less than 8 weeks gestation of pregnancy
CPT/HCPCS: 36415; 76801; 81025; 84702; 85025; 96365; 99284; J0131; J7030

== ENCOUNTER 2023-04-15 08:53 | Emergency (ER) | payer OTHER, SELFPAY ==
[2023-04-15] VITALS (7 sets, daily range): BP systolic 141–150; BP diastolic 80–97; PULSE 83–96; RESP 16–20; TEMP 37; O2SAT 98–100
--- NOTE | ~2023-04-15 | XR_ITS ---
EXAMINATION: XR chest 1V portable DATE: 04/15/2023 09:36 INDICATION: Cough TECHNIQUE: frontal and lateral views of the chest were obtained. COMPARISON: Chest radiograph dated 04/04/2022 FINDINGS: The lungs remain clear with no focal airspace opacities, pulmonary edema, pleural effusion or pneumot horax. The cardiomediastinal silhouette is normal. Visualized bones and soft tissues are unremarkable . IMPRESSION: 1. No acute cardiopulmonary disease. Reviewed, dictated and finalized at location A. STITCH LINING MAKER
--- NOTE | ~2023-04-15 | CT_ITS ---
EXAMINATION: CTA chest PE protocol DATE: 04/15/2023 12:04 INDICATION: Cough and congestion. Shortness of breath. TECHNIQUE: Computed tomography angiography (CTA) of the chest was performed with 100 mL Omnipaque-350 intravenous contrast timed to evaluate the pulmonary arteries. Coronal maximum intensity projection 3D-reconstructions were created by the technologist. Automated exposure control and iterative reconst ruction technique were employed. The dose-length product was 721.10 mGy-cm. COMPARISON: Chest single view 04/15/2023 FINDINGS: The lungs demonstrate mild atelectasis. There are areas of air trapping in left lower lobe. No pleural effusion. The heart size is normal. No pericardial effusion. There is no pulmonary embolu s. There is mild thoracic spondylosis. IMPRESSION: 1. No pulmonary embolus. Reviewed, dictated and finalized at location E. E COLORER IMPRESSION: 1. No pulmonary embolus.
--- NOTE | 2023-04-15 09:29 | ED.URI ---
HPI - URI/Sore Throat General Chief Complaint: Upper Respiratory Infection Stated Complaint: cold sx Time Seen by Provider: 04/15/23 09:14 Source: patient Mode of arrival: ambulatory Limitations: no limitations History of Present Illness HPI Narrative: Patient is a pleasant 32-year-old female past medical history as noted below who presents emergency department today ambulatory steady gait for evaluation of cough, chest tightness and that has been going on for over a week now. She was seen at an urgent care and put on amoxicillin for a URI. denies being on steroids. she feels fatigued and she does get short of breath with exertion. she states in November she had a procedure a heart cath and since then she hasn't felt right or the best. she denies any CP. she denies dizziness, nausea, vomiting, abdominal pain, diarrhea, syncope, urinary symptoms, or any other symptoms. she states that she smokes 2 black and milds a day. denies hx of PE or DVT. denies recent long periods of travel or any estrogen use. Related Data Home Medications Medication Instructions Recorded Confirmed vit no.95-ferrous 1 tablet PO DAILY 12/28/20 12/28/20 fumarate 28 mg-folic acid 800 mcg tablet () Allergies Allergy/AdvReac Type Severity Reaction Status Date / Time No Known Allergies Allergy Verified 12/17/20 07:38 Review of Systems Review of Systems: CONSTITUTIONAL: Denies fever, chills, or sweats. EYES: Denies visual changes, redness, or discharge. ENT: Denies rhinorrhea, congestion, sore throat, or otalgia. CARDIOVASCULAR: Denies chest pain, palpitations, or edema. RESPIRATORY: +cough and dyspnea. GASTROINTESTINAL: Denies abdominal pain, nausea, vomiting, or diarrhea. GENITOURINARY: Denies dysuria or hematuria. SKIN: Denies rash or itching. MUSCULOSKELETAL: Denies back pain, joint pain, or myalgia. NEUROLOGIC: Denies headache, numbness, or weakness. PSYCHIATRIC: Denies anxiety or depression. All systems reviewed & are unremarkable except as noted in HPI and below PMFSH Past Medical History Medical History (Updated 04/15/23 @ 12:31 by Paula Youssef APRN) Patient denies significant medical history Social History Social History Smoking status: Never smoker Second hand tobacco smoke exposure: No Substance use: never Spiritual care concerns: No Exam Narrative: GENERAL: Well-appearing, well-nourished, obese, and in no acute distress. HEAD: Normocephalic, atraumatic. EYES: PERRLA and EOMI. ENT: Nares clear, no rhinorrhea or epistaxis. Mucous membranes moist. NECK: Supple. CHEST: expiratory wheezing heard throughout as well as faint inspiratory wheeze in lung bases. respirations are regular and non-labored, no respiratory distress noted. no rhonchi/rales noted. HEART: Regular rate and rhythm. No murmur heard. Normal peripheral pulses. ABDOMEN: Soft, nontender, nondistended, normal active bowel sounds. EXTREMITIES: Normal range of motion. No edema. SKIN: Warm, dry, no rash. NEURO: No focal deficits. Alert and oriented x3. CN II-XII grossly intact PSYCH: Normal mood and affect. Course Reevaluation(s) Reevaluation #1: patient is resting, made aware of labs thus far and plan for the CTA to rule out any PE. states the breathing treatment and medications have helped some Date: 04/15/23 Time: 11:46 Vital Signs Vital signs: Vital Signs Temperature 98.6 F 04/15/23 08:54 Pulse Rate 96 04/15/23 08:54 Respiratory Rate 18 04/15/23 08:54 Blood Pressure 148/97 H 04/15/23 08:54 Pulse Oximetry 100 04/15/23 08:54 Oxygen Delivery Room Air 04/15/23 08:54 Temperature 98.6 F 04/15/23 08:54 Pulse Rate 83 04/15/23 12:41 Respiratory Rate 16 04/15/23 12:41 Blood Pressure 141/92 H 04/15/23 12:41 Pulse Oximetry 100 04/15/23 12:41 Oxygen Delivery Room Air 04/15/23 08:54 MDM - URI/Sore Throat MDM Narrative Medic
--- NOTE | 2023-04-15 09:30 | ECG_ITS ---
Measurements Intervals [place] Rate: 81 P: 30 IL: 170 QRS: 47 QRSD: 86 T: 13 QT: 377 QTc: 438 Interpretive Statements SINUS RHYTHM MINIMAL VOLTAGE CRITERIA FOR LVH, CONSIDER NORMAL VARIANT [MEETS CRITERIA IN ONE OF: R(aVL), S(V1), R(V5), R(V5/V6)+S(V1)] NO PREVIOUS ECG AVAILABLE FOR COMPARISON Electronically Signed On 04-15-2023 16:05:44 SBA UNDERWRITER by Anne Alarcon M.D.
[2023-04-15] MEDS: ALBUTEROL SULFATE NEB 2.5 MG/3 ML INH INHALATION (09:49)
[2023-04-15] MEDS: IPRATROPIUM BR 0.02% INH SOLN 0.5 MG/2.5 ML VIAL INHALATION (09:49)
[2023-04-15 10:00] LABS: Basophils Percent Auto 0.3 % (0.2-1.2); Eosinophils Absolute Auto 0.4 K/mm3 (0-0.3); Eosinophils Percent Auto 6.1 % (0-4.4); Immature Granulocyte Absolute 0.02 K/mm3 (0.00-0.031); Immature Granulocyte Percent A 0.3 % (0-0.5); Lymphocytes Absolute Auto 1.57 K/mm3 (0.9-3.2); Mean Corpuscular HGB Conc 29.3 g/dl (32-36); Mean Corpuscular Hemoglobin 24.8 pg (26-34); Mean Corpuscular Volume 84.7 fl (80-100); Mean Platelet Volume 11.1 fl (7.4-10.4); Monocytes Absolute Auto 0.5 K/mm3 (0.1-0.6); Monocytes Percent Auto 8.3 % (2.6-8.5); Platelet Count Result 218 k/mm3 (150-375); Red Blood Count 4.84 M/mm3 (4.2-5.4); Red Cell Distribution Width 16.6 % (11.5-14.5); White Blood Count 6.5 K/mm3 (4.5-10.0)
[2023-04-15] MEDS: methylPREDNISolone SOD SUCC 125 MG VIAL IV PUSH (10:07)
[2023-04-15 10:30] LABS: Influenza A QL RT-PCR Negative (Negative); Influenza B QL RT-PCR Negative (Negative); RSV RNA, RT-PCR Negative (Negative); SARS-CoV-2 RNA PCR Negative (Negative)
[2023-04-15 10:42] LABS: Prothrombin Time 13.7 Seconds (11.1-14.7)
[2023-04-15 10:44] LABS: Alanine Aminotransferase 18 U/L (6-35); Alkaline Phosphatase 60 U/L (38-126); Anion Gap 7 mmol/L (8-16); Aspartate Amino Transferase 24 U/L (14-36); Bilirubin,Total 0.4 mg/dL (0.2-1.3); Blood Urea Nitrogen 6 mg/dL (7-17); Calcium 9.1 mg/dL (8.4-10.2); Carbon Dioxide 24 mmol/L (22-30); Chloride 107 mmol/L (98-107); Estimated CRCL calculation 113 ml/min; Estimated Glomerular Filt Rate > 60; Glucose 96 mg/dL (65-110); Potassium 4.1 mmol/L (3.4-5.0); Sodium 138 mmol/L (137-145)
[2023-04-15 10:57] LABS: Anisocytosis 1+ (NORMAL); Hypochromasia 2+ (NORMAL); Ovalocytes 1+ (NORMAL); Platelet Estimate Adequate (Adequate); Schistocytes None Seen (NORMAL)
[2023-04-15 10:59] LABS: D Dimer 0.59 ug/mL (<0.48)
[2023-04-15 11:47] LABS: Troponin I < 0.012 ng/mL (0.000-0.034)
== END 2023-04-15 12:43 | disposition home or self-care (01) ==
PROVIDERS: Emergency Medicine; Emergency Provider Nurse Practitioner; PCP Obstetrics & Gynecology
DX: J98.8 Other specified respiratory disorders (principal); R05.9 Cough, unspecified; R03.0 Elevated blood-pressure reading, without diagnosis of hypertension; F17.290 Nicotine dependence, other tobacco product, uncomplicated; Z20.822 Contact with and (suspected) exposure to COVID-19; Z79.51 Long term (current) use of inhaled steroids
CPT/HCPCS: 36415; 71045; 71275; 80053; 81025; 84484; 85025; 85380; 85610; 87637; 93005; 94640; 96374; 99284; J2930; Q9967

== ENCOUNTER 2023-12-10 13:18 | Emergency (ER) | payer OTHER, SELFPAY ==
--- NOTE | ~2023-12-10 | CT_ITS ---
EXAMINATION: CT abdomen pelvis wo con DATE: 12/10/2023 13:45 INDICATION: Left flank pain. TECHNIQUE: Computed tomography (CT) of the abdomen and pelvis was performed without intravenous contr ast. Automated exposure control and iterative reconstruction technique were employed. The dose-length product was 847.67 mGy-cm. COMPARISON: None. FINDINGS: The visualized portions of the lung bases are clear without pneumonia or pleural effusion. The heart size is normal. No pericardial effusion. The liver, gallbladder, spleen, pancreas, adrenal glands, and kidneys are normal. There is no urolithiasis. There are no dilated loops of bowel. The ap pendix is normal. There are no pathologically enlarged lymph nodes. There is no free intraperitoneal fluid. There is mild lumbar spondylosis. IMPRESSION: 1. No urolithiasis. Reviewed, dictated and finalized at location A. IMPRESSION: 1. No urolithiasis.
[2023-12-10 13:22] VITALS: BP 140/85; PULSE 100; RESP 16; TEMP 36.8; O2SAT 100
--- NOTE | 2023-12-10 13:31 | ED.FEMALEGU ---
HPI - Female Genitourinary General Chief complaint: Urogenital-Female Stated complaint: Urinary Symptoms. Believes she has UTI Time Seen by Provider: 12/10/23 13:31 Source: patient Mode of arrival: ambulatory Limitations: no limitations History of Present Illness HPI Narrative: Patient is a 33-year-old female who presents the ED with concern for a UTI. Patient reports having urinary urgency, frequency with small void urines over the last 3-4 days. States symptoms have been worsening. She also reports having pain throughout her left side abdomen. She denies history of kidney stones or previous UTI. Denies concern for STDs but is sexually active. Denies significant back pain, fevers, hematuria, nausea, vomiting. Related Data Home Medications Medication Instructions Recorded Confirmed vit no.95-ferrous 1 tablet PO DAILY 12/28/20 12/28/20 fumarate 28 mg-folic acid 800 mcg tablet () Allergies Allergy/AdvReac Type Severity Reaction Status Date / Time No Known Allergies Allergy Verified 12/10/23 14:02 Review of Systems Review of Systems: All systems reviewed & are unremarkable except as noted in HPI. All systems reviewed & are unremarkable except as noted in HPI and below [facility] Past Medical History Medical History Patient denies significant medical history Social History Social History Smoking status: Never smoker Second hand tobacco smoke exposure: No Substance use: never Spiritual care concerns: No Exam Narrative: GENERAL: Well appearing, Obese with BMI of 37.4, non-toxic, in no acute distress. HEAD: Normocephalic, atraumatic. RESPIRATORY: Airway patent, respirations nonlabored. CARDIOVASCULAR: Regular rate and rhythm without murmurs, rubs, or gallops. ABDOMINAL: Soft, TTP throughout LLQ/ L lateral abdomen, nondistended. Normoactive BS. No significant CVA tenderness to percussion MUSCULOSKELETAL: Moves all extremities. No gross deformities. SKIN: Warm, dry, normal color. NEURO: A&O X3. Speech clear. PSYCHIATRIC: Appropriate mood and affect. Normal interaction. Course Vital Signs Vital signs: Vital Signs Temperature 98.2 F 12/10/23 13:22 Pulse Rate 100 12/10/23 13:22 Respiratory Rate 16 12/10/23 13:22 Blood Pressure 140/85 12/10/23 13:22 Pulse Oximetry 100 12/10/23 13:22 Temperature 97.9 F 12/10/23 16:23 Pulse Rate 83 12/10/23 16:23 Respiratory Rate 15 12/10/23 16:23 Blood Pressure 140/97 H 12/10/23 16:23 Pulse Oximetry 100 12/10/23 16:23 MDM - Female Genitourinary MDM Narrative Medical decision making narrative: UA with trace leuk esterase, 6-10 white blood cell count, 1+ urine bacteria. Given patient's acute symptomatology, will treat as infection. Given 1st dose of Keflex in the ED. Urine test is negative. CT abdomen/ pelvis obtained to rule out ureterolithiasis. Negative. No significant abnormalities. Patient updated on lab and imaging findings. patient did express concern for potential STDs. Gonorrhea, chlamydia, Trichomonas negative. Patient will be discharged. Advised to follow-up with primary care doctor for further evaluation and urine culture results. Given return precautions. She is in agreement with plan. Discharged in stable condition. Medical Records Attestation: I reviewed the patient's medical records. Lab Data Attestation: I reviewed the patient's lab results. Labs: Lab Results 12/10/23 12/10/23 Range/Units 13:30 13:31 Urine Color Yellow (Yellow) Urine Appearance Clear (Clear) Urine pH 5.5 (5.0-9.0) Ur Specific [place] 1.029 (1.001-1.035) Urine Protein 1+ H (Negative) mg/dL Urine Glucose (UA) Negative (Negative) mg/dL Urine Ketones Trace H (Negative) mg/dL Ur Blood (Man) 1+ H (Negative) Urine Nitra
[2023-12-10 13:33] LABS: BEDSIDEPREGUCG Negative
[2023-12-10 13:43] LABS: Add Urine Microscopic? YES; Appearance Urine Clear (Clear); Bacteria Urine 1+ /hpf; Bilirubin Urine Negative (Negative); Blood Urine 1+ (Negative); Color Urine Yellow (Yellow); Glucose Urine UA Negative (Negative); Ketones Urine Trace mg/dL (Negative); Leukocyte Esterase Ur Trace LEU/UL (Negative); Nitrate Urine Negative (Negative); Non Pathogenic Casts 0-2; Protein Urine 1+ mg/dL (Negative); RBC Urine 0-2 /hpf (0-2); Specific Grav Ur 1.029 (1.001-1.035); Squamous Epithelial Cell Urine Few /hpf (Few); pH Urine 5.5 (5.0-9.0)
[2023-12-10] MEDS: CEPHALEXIN 500 MG CAPSULE PO (14:32)
[2023-12-10 15:45] LABS: Trichomonas Vag PCR NOT DETECTED (NOT DETECTE)
[2023-12-10 16:09] LABS: Chlamydia trachomatis NOT DETECTED (NOT DETECTE); Neisseria gonorrhoeae PCR NOT DETECTED (NOT DETECTE)
[2023-12-10 16:23] VITALS: BP 140/97; PULSE 83; RESP 15; TEMP 36.6; O2SAT 100
== END 2023-12-10 16:24 | disposition home or self-care (01) ==
PROVIDERS: Emergency Medicine; Emergency Provider Physician Assistant
DX: N30.00 Acute cystitis without hematuria (principal); R10.9 Unspecified abdominal pain
CPT/HCPCS: 74176; 81001; 81025; 87086; 87491; 87591; 87661; 99284; A9270